=== PATIENT | female | born 1970 | race Caucasian/White ===

== ENCOUNTER → 2017-01-02 | Outpatient (CLI) | payer BC | LOC: MC.RAD 13:53 | DX: Z12.31 Encounter for screening mammogram for malignant neoplasm of breast (principal) ==

== ENCOUNTER → 2018-02-02 | Outpatient (CLI) | payer BC | LOC: MC.RAD 08:17 | DX: Z12.31 Encounter for screening mammogram for malignant neoplasm of breast (principal) ==

== ENCOUNTER → 2019-02-15 | Outpatient (CLI) | payer BC | LOC: MC.RAD 11:02 | DX: Z12.31 Encounter for screening mammogram for malignant neoplasm of breast (principal) ==

== ENCOUNTER 2019-07-11 08:57 | Day surgery (SDC) | payer BC ==
[~2019-07-11] VITALS: Ht 167.6 cm; Wt 80.2 kg
[2019-07-11 09:24] VITALS: BP 120/84; PULSE 80; TEMP 98.7
[2019-07-11] MEDS ORDERED: ESTRACE0.5 MG PO (09:31)
[2019-07-11] MEDS ORDERED: ZYRTEC 10MG10 MG PO (09:32)
[2019-07-11] MEDS ORDERED: ANIMAL SHAPES1 CT2 PO (09:33)
[2019-07-11] MEDS ORDERED: MAGNESIUM500 MG PO (09:34)
[2019-07-11] MEDS ORDERED: ESTROVEN MAX400 MCG PO (09:35)
--- NOTE | 2019-07-11 09:36 | NUR ---
TO RM AT 0905- CALL LIGHT IN REACH AT BEDSIDE.
[2019-07-11 12:05] VITALS: BP 108/73; PULSE 72; TEMP 97.8
--- NOTE | 2019-07-11 12:05 | NUR ---
Patient arrives to [facility] via cart, accompanied by [facility] RN [place]. Bedside report received. Patient ambulates with standby assist to chair in room. Monitoring applied - VSS and WNL on room air. Family is at the bedside. Patient denies any pain or nausea. Chair reclined, light dimmed, patient resting.
--- NOTE | 2019-07-11 12:19 | NUR ---
Dr. Hoskins at the bedside at this time.
[2019-07-11 12:20] VITALS: BP 103/60; PULSE 61
--- NOTE | 2019-07-11 12:20 | NUR ---
VSS and WNL on room air. Resting comfortably in room. Alert and awake. Offered and receives juice and a muffin to eat.
[2019-07-11 12:35] VITALS: BP 107/67; PULSE 75
--- NOTE | 2019-07-11 12:35 | NUR ---
Patient is resting comfortably in room. Tolerating PO well.
[2019-07-11 12:50] VITALS: BP 113/78; PULSE 62
--- NOTE | 2019-07-11 13:22 | NUR ---
Patient has met discharge criteria. She states "I'm ready to go home and sleep in my own bed". Discharge instructions discussed, denies any questions, and verbalizes understanding. PIV removed with catheter intact and hemostasis achieved. Changes to clothing independently. Escorted to exit via wheelchair and discharged to home with ride in private vehicle at 1322.
== END 2019-07-11 13:22 | disposition home or self-care (01) ==
LOC: SDCO 08:57
DX: Z12.11 Encounter for screening for malignant neoplasm of colon (principal); K62.89 Other specified diseases of anus and rectum
CPT/HCPCS: OP; J2250; J2405; J3010; J7030

== ENCOUNTER → 2020-02-27 | Outpatient (CLI) | payer BC ==
[~2020-02-27] MED LIST: ANIMAL SHAPES1 CT2 PO; ESTRACE0.5 MG PO; ESTROVEN MAX400 MCG PO; MAGNESIUM500 MG PO; ZYRTEC 10MG10 MG PO
== END ==
LOC: MC.RAD 17:13
DX: Z12.31 Encounter for screening mammogram for malignant neoplasm of breast (principal)

== ENCOUNTER → 2021-02-27 | Outpatient (CLI) | payer BC | LOC: MC.RAD 08:00 | DX: Z12.31 Encounter for screening mammogram for malignant neoplasm of breast (principal) ==

== ENCOUNTER → 2022-01-28 | Outpatient (CLI) | payer BC | LOC: COL.RAD 01-14 07:30 | DX: M53.3 Sacrococcygeal disorders, not elsewhere classified (principal) ==

== ENCOUNTER → 2022-01-31 | Outpatient (CLI) | payer BC | LOC: MHCPAIN 12:50 | DX: M53.3 Sacrococcygeal disorders, not elsewhere classified (principal); M25.512 Pain in left shoulder; M67.814 Other specified disorders of tendon, left shoulder | CPT/HCPCS: G0463 ==

== ENCOUNTER 2022-02-14 09:45 | Outpatient (RCR) | payer BC | END 2022-02-15 | disposition still patient (30) | LOC: WSPT | DX: M25.512 Pain in left shoulder (principal) ==

== ENCOUNTER 2022-02-28 10:45 | Outpatient (RCR) | payer BC | END 2022-03-18 | disposition home or self-care (01) | LOC: WSPT | DX: M25.512 Pain in left shoulder (principal) ==

== ENCOUNTER → 2022-03-11 | Outpatient (CLI) | payer BC | LOC: MHCPAIN 12:55 | DX: M25.512 Pain in left shoulder (principal); M53.3 Sacrococcygeal disorders, not elsewhere classified; M67.814 Other specified disorders of tendon, left shoulder | CPT/HCPCS: G0463 ==

== ENCOUNTER 2022-03-26 14:12 | Outpatient (RCR) | payer BC | END 2022-04-17 | disposition still patient (30) | LOC: WSPT | DX: M25.512 Pain in left shoulder (principal) ==